=== PATIENT | male | born 1985 | race African-American/Black ===

== ENCOUNTER 2023-07-12 13:17 | Outpatient (CLI) | payer OTHER | END 2023-07-12 13:18 | disposition home or self-care (01) | LOC: CSHRAD 13:17 | PROVIDERS: ATTEND Family Medicine | DX: M25.552 Pain in left hip (principal) ==

== ENCOUNTER 2023-08-12 09:42 | Outpatient (CLI) | payer OTHER | END 2023-08-12 09:43 | disposition home or self-care (01) | LOC: CSHMRI 09:42 | PROVIDERS: ATTEND Family Medicine | DX: M54.42 Lumbago with sciatica, left side (principal) | CPT/HCPCS: 72148 ==

== ENCOUNTER 2024-02-13 15:54 | Outpatient (CLI) | payer OTHER | END 2024-02-13 15:55 | disposition home or self-care (01) | LOC: CSHRAD 15:54 | PROVIDERS: ATTEND Family Medicine | DX: R07.81 Pleurodynia (principal) | CPT/HCPCS: 71046 ==